=== PATIENT | male | born 1970 | race Caucasian/White ===

== ENCOUNTER 2016-08-13 20:42 | Emergency (ER) | payer OTHER ==
[2016-08-13 20:46] VITALS: BP 182/108; PULSE 98; RESP 16; TEMP 98.3; O2SAT 98
--- NOTE | 2016-08-13 20:53 | PD ---
Physical Exam Time Seen by Provider: 20:49 Narrative 46 yo M c/o coughing up blood x couple hours. Says its dark in color. + tobacco use. +cough. Denies chest pain, SOB. Denies hx of DVT/PE. C/o abd pain x 1 month. Reports constipation. Denies fever, Vomiting. Patient seen in triage. VS reviewed. Awaiting bed placement. Data Data Last Documented VS Vital Signs Date Time Temp Pulse Resp B/P Pulse Ox O2 Delivery O2 Flow Rate FiO2 08/13/16 20:46 98.3 98 16 182/108 98 Room Air MDM Supervised Visit with KRISTEL: Gisselle Young Aug 13, 2016 20:53
[2016-08-13] MEDS ORDERED: METF1000 PO (21:12)
[2016-08-13] MEDS ORDERED: GABA800T PO (21:12)
[2016-08-13] MEDS ORDERED: LISI10TA3 PO ×2 (21:12→23:12)
[2016-08-13] MEDS ORDERED: LISINOPRIL 10 MG TAB PO ONE (21:15)
--- NOTE | 2016-08-13 21:16 | PD ---
HPI Chief Complaint: GI Complaint Time Seen by Provider: 20:57 Travel History International Travel<30 days: No Contact w/Intl Traveler<30days: No Traveled to known affect area: No History of Present Illness HPI 46yo M with PMH of DM, HLD, neuropathy presents to the ED with c/o blood in the sputum for a few hours. Pt is a cigarette smoker and has a chronic cough but states it was bright red blood tinged in the sputum in the last few hours. Denies any fever, chest pain, sob, n/v, dysuria, hematuria, focal weakness or numbness. Denies any history of tuberculosis, PE/DVT, cancer. Pt also with intermittent lower abdominal pain for 3 months. Pt has been out of his lisinopril for 2 weeks. PFSH Past Medical History Diabetes: Yes Patient Takes Glucophage: Yes (metformin 08/13/16 1800) Hypertension: Yes Neurologic: Yes (neuropathy) Tetanus Vaccination: > 5 Years Influenza Vaccination: No Past Surgical History Surgical History: No Previous Surgery Social History Alcohol Use: Yes (Social) Tobacco Use: Yes Substance Use: Yes (Marijuana) Allergies-Medications (Allergen,Severity, Reaction): Coded Allergies: No Known Allergies (Unverified , 08/13/16) Reported Meds & Prescriptions Reported Meds & Active Scripts Active Lisinopril 10 Mg Tab 10 Mg PO DAILY 7 Days Reported Simvastatin 20 Mg Tab 20 Mg PO DAILY Gabapentin 800 Mg Tab 2,400 Mg PO DAILY Metformin (Metformin HCl) 1,000 Mg Tab 500 Mg PO DAILY With a meal Lisinopril 10 Mg Tab 10 Mg PO DAILY Review of Systems Except as stated in HPI: all other systems reviewed are Neg Physical Exam Narrative GENERAL: 46yo M not in distress. SKIN: Focused skin assessment warm/dry. HEAD: Atraumatic. Normocephalic. EYES: Pupils equal and round. No scleral icterus. No injection or drainage. ENT: No nasal bleeding or discharge. Mucous membranes pink and moist. NECK: Trachea midline. No JVD. CARDIOVASCULAR: Regular rate and rhythm. No murmur appreciated. RESPIRATORY: No accessory muscle use. Clear to auscultation. Breath sounds equal bilaterally. GASTROINTESTINAL: Abdomen soft, non-tender, nondistended. No rebound tenderness or guarding. MUSCULOSKELETAL: No obvious deformities. No clubbing. No cyanosis. No edema. NEUROLOGICAL: Awake and alert. No obvious cranial nerve deficits. Motor grossly within normal limits. Normal speech. PSYCHIATRIC: Appropriate mood and affect; insight and judgment normal. Data Data Last Documented VS Vital Signs Date Time Temp Pulse Resp B/P Pulse Ox O2 Delivery O2 Flow Rate FiO2 08/13/16 22:05 94 18 171/106 98 Room Air 08/13/16 20:46 98.3 Orders Complete Blood Count With Diff (08/13/16 21:10) Basic Metabolic Panel (Bmp) (08/13/16 21:10) Chest, Single Ap (08/13/16 ) Lisinopril (Prinivil) (08/13/16 21:15) Labs Laboratory Tests Test 08/13/16 21:20 White Blood Count 13.1 TH/MM3 Red Blood Count 4.70 MIL/MM3 Hemoglobin 14.5 GM/DL Hematocrit 41.1 % Mean Corpuscular Volume 87.4 FL Mean Corpuscular Hemoglobin 30.9 PG Mean Corpuscular Hemoglobin 35.3 % Concent Red Cell Distribution Width 13.1 % Platelet Count 250 TH/MM3 Mean Platelet Volume 8.9 FL Neutrophils (%) (Auto) 55.4 % Lymphocytes (%) (Auto) 35.4 % Monocytes (%) (Auto) 8.1 % Eosinophils (%) (Auto) 0.9 % Basophils (%) (Auto) 0.2 % Neutrophils # (Auto) 7.3 TH/MM3 Lymphocytes # (Auto) 4.6 TH/MM3 Monocytes # (Auto) 1.1 TH/MM3 Eosinophils # (Auto) 0.1 TH/MM3 Basophils # (Auto) 0.0 TH/MM3 CBC Comment DIFF FINAL Differential Comment Sodium Level 138 MEQ/L Potassium Level 3.8 MEQ/L Chloride Level 103 MEQ/L Carbon Dioxide Level 26.2 MEQ/L Anion Gap 9 MEQ/L Blood Urea Nitrogen 8 MG/DL Creatinine 0.80 MG/DL Estimat Glomerular Filtration 103 ML/MIN Rate Random Glucose 133 MG/DL Calcium Level 9.4 MG/DL [facility] Medical Decision Making Medical Screen Exam Complete: Yes Emergency Medical Condition: Yes Interpretation(s) Last Impressions Chest X-Ray 08/13/16 0000 Signed Impressions: Service Date/Time: Saturday, August 13, 2016 21:51 - CONCLUSION: No acute disease. There is no evidence of pneumonia. Gonzales Dudley MD Laboratory Tests Test 08/13/16 21:20 White Blood Count 13.1 TH/MM3 (4.0-11.0) Red Blood Count 4.70 MIL/MM3 (4.50-5.90) Hemoglobin 14.5 GM/DL (13.0-17.0) Hematocrit 41.1 % (39.0-51.0) Mean Corpuscular Volume 87.4 FL (80.0-100.0) Mean Corpuscular Hemoglobin 30.9 PG (27.0-34.0) Mean Corpuscular Hemoglobin 35.3 % Concent (32.0-36.0) Red Cell Distribution Width 13.1 % (11.6-17.2) Platelet Count 250 TH/MM3 (150-450) Mean Platelet Volume 8.9 FL (7.0-11.0) Neutrophils (%) (Auto) 55.4 % (16.0-70.0) Lymphocytes (%) (Auto) 35.4 % (9.0-44.0) Monocytes (%) (Auto) 8.1 % (0.0-8.0) Eosinophils (%) (Auto) 0.9 % (0.0-4.0) Basophils (%) (Auto) 0.2 % (0.0-2.0) Neutrophils # (Auto) 7.3 TH/MM3 (1.8-7.7) Lymphocytes # (Auto) 4.6 TH/MM3 (1.0-4.8) Monocytes # (Auto) 1.1 TH/MM3 (0-0.9) Eosinophils # (Auto) 0.1 TH/MM3 (0-0.4) Basophils # (Auto) 0.0 TH/MM3 (0-0.2) CBC Comment DIFF FINAL Differential Comment Sodium Level 138 MEQ/L (136-145) Potassium Level 3.8 MEQ/L (3.5-5.1) Chloride Level 103 MEQ/L (98-107) Carbon Dioxide Level 26.2 MEQ/L (21.0-32.0) Anion Gap 9 MEQ/L (5-15) Blood Urea Nitrogen 8 MG/DL (7-18) Creatinine 0.80 MG/DL (0.60-1.30) Estimat Glomerular Filtration 103 ML/MIN Rate (>89) Random Glucose 133 MG/DL (74-106) Calcium Level 9.4 MG/DL (8.5-10.1) Differential Diagnosis Bronchitis vs. pneumonia vs. lung mass Narrative Course 46yo M with c/o blood tinged sputum for a few hours. Pt is a chronic cig smoker and has chronic cough. Pt has no abdominal pain on exam even though he complains of pain. Will check labs, CXR. Labs reviewed, mild leukocytosis at 13.1. H/H stable at 14.5/41.1. Glucose 133. Creatinine normal. CXR showed no acute disease. BP was elevated at 182/ 108. Pt has been out of his lisinopril for 2 weeks so gave him his lisinopril 10mg PO and now BP is 143/82. HR is 91bpm. Pt saturating at 97% on RA and not in distress. Advised smoking cessation. Pt will be able to follow up with PMD in [place] next week. Will write him 1 week's worth of lisinopril. Pt has been observed in the ED and has small amount of blood in sputum when he coughs. Hemodynamically stable. Return precautions given. Diagnosis Primary Impression: Bronchitis Additional Impression: Elevated blood pressure reading Patient Instructions: General Instructions Departure Forms: Tests/Procedures Additional Instructions: Please follow up with your PMD in 3-7 days. Return to the ED if symptoms worsen. Med/Other Pt SpecificInfo: Prescription(s) given Scripts Lisinopril 10 Mg Tab10 Mg PO DAILY 7 Days Ref 0 Prov:Maddi Cruz DO 08/13/16 Disposition: 01 DISCHARGE HOME Condition: Stable Maddi Cruz DO Aug 13, 2016 21:16
[2016-08-13] MEDS ORDERED: SIMV20TA PO (21:17)
[2016-08-13 21:39] LABS: AUTOMATED NEUTROPHIL # 7.3 TH/MM3 (1.8-7.7); BASOPHIL % 0.2 % (0.0-2.0); EOSINOPHIL # 0.1 TH/MM3 (0-0.4); EOSINOPHIL % 0.9 % (0.0-4.0); HEMATOCRIT 41.1 % (39.0-51.0); HEMO FLAGS DIFF FINAL; LYMPH % 35.4 % (9.0-44.0); LYMPHOCYTE # 4.6 TH/MM3 (1.0-4.8); MEAN CELL VOLUME 87.4 FL (80.0-100.0); MEAN CORPUSCULAR HEMOGLOBIN 30.9 PG (27.0-34.0); MEAN CORPUSCULAR HGB CONC 35.3 % (32.0-36.0); MONO % 8.1 % (0.0-8.0); NEUT % 55.4 % (16.0-70.0); PLATELET COUNT 250 TH/MM3 (150-450); RED CELL DISTRIBUTION WIDTH 13.1 % (11.6-17.2); WHITE BLOOD COUNT 13.1 TH/MM3 (4.0-11.0)
--- NOTE | 2016-08-13 21:53 | RADRPT ---
EXAM DATE/TIME: 08/13/2016 21:51 [facility] COMPARISON: No previous studies available for comparison. INDICATIONS : Cough. MEDICAL HISTORY : None. SURGICAL HISTORY : None. ENCOUNTER: Initial ACUITY: 3 days PAIN SCORE: 0/10 LOCATION: Bilateral chest FINDINGS: A single view of the chest demonstrates the lungs to be symmetrically aerated without evidence of mas s, infiltrate or effusion. The cardiomediastinal contours are unremarkable. Osseous structures are intact. CONCLUSION: No acute disease. There is no evidence of pneumonia. Gonzales Dudley MD on August 13, 2016 at 21:51 Board Certified Radiologist. This report was verified electronically.
[2016-08-13 22:04] LABS: BICARBONATE 26.2 MEQ/L (21.0-32.0); POTASSIUM 3.8 MEQ/L (3.5-5.1)
[2016-08-13 22:05] VITALS: BP 171/106; PULSE 94; RESP 18; O2SAT 98
== END 2016-08-13 23:43 | disposition home or self-care (01) ==
LOC: NEPC 20:42
DX: J40 Bronchitis, not specified as acute or chronic (principal); I10 Essential (primary) hypertension; Z72.0 Tobacco use; F12.90 Cannabis use, unspecified, uncomplicated
CPT/HCPCS: 71010; 80048; 85025; 99284